=== PATIENT | female | born 1955 | race Caucasian/White ===

== ENCOUNTER 2020-03-26 12:56 | Outpatient (CLI) | payer OTHER ==
--- NOTE | 2020-03-26 13:31 | RAD ---
EXAM: CHEST TWO VIEWS 03/26/2020 1:29 PM HISTORY: Dyspnea, COPD COMPARISON: None. FINDINGS: Lungs: No acute airspace consolidation. Heart: Normal in size and contour. Pulmonary Vessels: Normal. Costophrenic Angles: Clear. Pneumothorax: None. Osseous Structures: No acute fracture or subluxation demonstrated. There is scattered degenerative and osteoarthritic carlos nge present. Additional Findings: None. IMPRESSION: No significant acute intrathoracic disease.
== END 2020-03-26 12:57 | disposition home or self-care (01) ==
LOC: BICRAD 12:56
PROVIDERS: ATTEND Internal Medicine Pulmonary Disease
DX: R06.00 Dyspnea, unspecified (principal)
CPT/HCPCS: 71046